=== PATIENT | female | born 1950 | race Caucasian/White ===

== ENCOUNTER 2018-03-10 07:03 | Day surgery (SDC) | payer MEDICARE, MEDICAID, SELFPAY ==
[2018-03-10] VITALS (9 sets, daily range): BP systolic 93–153; BP diastolic 50–67; PULSE 58–75; RESP 14–18; TEMP 35.7–36.4; O2SAT 99–100; BMI 21.4
--- NOTE | 2018-03-10 09:10 | PCM.OPRPT ---
Problem List (1) Family history of colon cancer Status: Acute Report of Operation Date of Procedure: 03/10/18 Pre-Operative Diagnosis: Family history of colon cancer Post-Operative Diagnosis: Same Surgery/Procedure Performed:: Colonoscopy with deployment of clip Type of Anesthesia:: MAC Anesthesiologist: Jose Stewart Description of Procedure: Patient was brought into the endoscopy suite placed in the left lateral decubitus position was given graded anesthesia. Colonoscope was inserted into the rectum and directed through the sigmoid colon, descending colon, transverse colon. This took an unbelievably long period of time to get to this location what I think at the hepatic flexure that I saw was a fungating mass and in the second set it took me to get the biopsy forceps down my channel it had moved away and I spent another 15 minutes trying to get back to it and just was unsuccessful. I was able to take a picture of it. I was able to put a metal clip distal to it. I was unable to damián it with Suzanne ink. The remaining part of her colon is extremely tortuous this is an excessively difficult colonoscopy. She did not have a great bowel prep I spent a lot of time irrigating and aspirating out over 600 cc of brown stool all liquidy in nature. Anal exam showed no masses. Given the amount of time pressure that I had exerted on her I did not feel that trying to be heroic and getting past this mass was appropriate. This is an obvious mass that is not going to be amendable to endoscopic techniques to be removed. And I am going to recommend that she undergo a laparoscopic extended right hemicolectomy. - Admit VTE Documentation VTE Present on Admission: No VTE Mechan Device Prophylaxis: None VTE Pharm Prophylaxis ordered?: No Reason prophylaxis not ordered:: Treatment Not Indicated
--- NOTE | 2018-03-10 09:14 | RAD_ITS ---
STUDY: X-RAY - ABDOMEN/PELVIS REASON FOR EXAM: Female, 67 years old. ABDOMINAL DISTENTION POST ENDO PROCEDURE, HAS HAD METAL CLIP PLACED SOMEWHERE NEAR THE HEPATIC FLEXURE TECHNIQUE: AP supine and upright views of the abdomen and pelvis. COMPARISON: None. FINDINGS: Normal visualized lung bases. There is an unremarkable bowel gas pattern. There is no demonstrated free abdominal air. The visualized liver, spleen are grossly normal in size and morphology. Bilateral kidney stones are noted the largest is in the right kidney measures 4 mm. Normal soft tissue structures. There are diffuse degenerative changes of the visualized lumbar spine. RAD/Abd Inc Decub and/or Erect IMPRESSION: Bilateral kidney stones are noted the largest is in the right kidney measures 4 mm. Electronically Signed: Errol Merritt MD at 12:55 EDT Tel , Service support ,
== END 2018-03-10 10:33 | disposition home or self-care (01) ==
LOC: EN 07:03 → AC 07:05
PROVIDERS: Family Provider Family Medicine; PCP Family Medicine; Visit Provider Surgery
PROC: 0DJD8ZZ Inspection of Lower Intestinal Tract, Via Natural or Artificial Opening Endoscopic (ICD-10-PCS; CPT 45378; principal; 2018-03-10 08:25)
DX: K63.89 Other specified diseases of intestine (principal); K56.2 Volvulus; Z80.0 Family history of malignant neoplasm of digestive organs; N20.0 Calculus of kidney; M81.0 Age-related osteoporosis without current pathological fracture; G35 Multiple sclerosis; E78.5 Hyperlipidemia, unspecified; J30.2 Other seasonal allergic rhinitis; F17.200 Nicotine dependence, unspecified, uncomplicated; Z79.899 Other long term (current) drug therapy
CPT/HCPCS: G0105; 74019; J7120; A4648; J1610

== ENCOUNTER → 2018-03-19 14:15 | Outpatient (CLI) | payer MEDICARE, MEDICAID, SELFPAY ==
--- NOTE | 2018-03-19 14:16 | CT_ITS ---
STUDY: CT ABDOMEN AND PELVIS WITH CONTRAST REASON FOR EXAM: Female, 67 years old. Mass of the hepatic flexure of the colon. RADIATION DOSAGE (If Supplied By Facility): CTDIvol = ( 19.95+7.68 ) mGy, DLP = ( 357.07 ) mGycm TECHNIQUE: Transaxial images were obtained from the dome of the diaphragm to the symphysis pubis with oral contrast. 100ML ml of Isovue 300 contrast was administered. Sagittal and coronal images were reconstructed. Individualized dose optimization techniques were used for this CT. COMPARISON: Comparison is made to the report of barium contrast enema 03/13/2012. FINDINGS: Body wall soft tissues: No acute process. Osseous structures: L4-L5 minimal grade 1 spinal listhesis with moderate disc narrowing and mild facet hypertrophy without significant stenosis. Slight lumbar scoliosis. Osteopenia. Normal lordosis. Inferior chest: Clear lung bases. Normal distal esophagus. No significant cardiomegaly. No pericardial effusion. Hepatobiliary: There is a benign cyst within segment 4 of the liver, 14 mm. The liver is otherwise normal. Nondilated biliary tree and common duct. Contracted normal-appearing gallbladder. Pancreas: No acute process. Spleen: Normal. Adrenal glands: Normal. Urogenital: There are 2 small nonobstructing calyceal calculi of the right kidney measuring less than 3 mm. A few vascular cusp secretions are present in the renal cecy. There are no calcific outline of the left kidney. Normal cortical thickness, symmetric nephrograms. Normal collecting systems, ureters, urinary bladder. Uterus absent. No adnexal mass or cyst. Pelvic floor and sidewalls and retroperitoneum: No mass or adenopathy. Vasculature: Desiccation of wall the aorta and proximal iliac vessels without significant stenosis, without aneurysm or dissection. Normal portal venous and mesenteric venous arborization. Normal iliac veins and IVC. Stomach: No acute process. Small bowel and mesentery: No acute process. Large bowel: Normal appendix. There is prominent distributed stool of the large bowel, not excessive but potentially reflecting mild constipation. There is no acute inflammation of the large bowel. Normal rectum. Free fluid or free air: None. CT/Abdomen/Pelvis WITH Contrast IMPRESSION: Moderately prominent stool burden of large bowel, not extreme but potentially reflecting mild constipation. There is no visible mass of the large bowel. No other acute abdominopelvic process. Electronically Signed: Curtis Marin, at 16:49 EDT Tel , Service support ,
[2018-03-19 14:36] LABS: CREATININE FINGERSTICK 0.9 mg/dL (0.55-1.02); EGFR FINGERSTICK > 60.0000 mL/min (>60)
== END ==
PROVIDERS: Family Provider Family Medicine; PCP Family Medicine; Visit Provider Surgery
DX: K63.9 Disease of intestine, unspecified (principal)
CPT/HCPCS: 74177; Q9967

== ENCOUNTER 2018-04-14 10:44 | Inpatient (IN) | payer MEDICARE, MEDICAID, SELFPAY ==
[2018-04-07 13:10] VITALS: BP 129/76; PULSE 77; RESP 18; TEMP 36.8; O2SAT 98; BMI 21.4
[2018-04-07 13:48] LABS: Absolute Lymphocyte Count 1.47 X10^3/ul (0.83-4.51); Absolute Neutrophil Count 4.7 X10^3/uL (2.0-7.7); Basophil# 0.03 X10^3/uL; Basophil% 0.4 % (0-1); Eosinophil# 0.14 X10^3/uL; Eosinophils% 1.9 % (0-5); Hematocrit 40.9 % (37-47); Hemoglobin 13.4 g/dl (12.0-15.0); Lymphocyte # 1.47 X10^3/ul (4.0); Lymphocyte % 20.4 % (19-41); Mean Corp Hgb Conc 32.8 g/gl (32-36); Mean Corpuscular Hgb 31.3 pg (27.0-32.0); Mean Corpuscular Volume 95.6 fL (81-99); Mean Platelet Vol. 10.7 fl (6.2-12.0); Monocyte# 0.82 X10^3/uL; Monocyte% 11.4 % (0-10); Neutrophil # 4.73 X10^3/uL (2.7-7.7); Neutrophil % 65.8 % (47-70); Platelet Count 235 K/mm3 (150-450); RBC Distribution Width CV 13.4 % (11.6-14.6); RBC Distribution Width SD 47.3 fl (35.1-43.9); Red Blood Count 4.28 M/mm3 (4.2-5.4); White Blood Count 7.2 K/mm3 (4.4-11.0)
[2018-04-07 13:59] LABS: POSITIVE COUNT NO; POSITIVE DIFFERENTIAL NO; POSITIVE MORPHOLOGY NO
--- NOTE | 2018-04-08 14:10 | NS ---
Pt picked up 10 bottles of Ensure Enlive today at 11:30. Instructed to consume 1 bottle BID from today through 04/12/18. Encouraged to call RD as needed with questions. Lisbeth Harris MS, RD, LD
[2018-04-14] VITALS (11 sets, daily range): BP systolic 97–166; BP diastolic 57–78; PULSE 55–82; RESP 14–18; TEMP 36.6–37.2; O2SAT 95–100; BMI 21.4
--- NOTE | 2018-04-14 | IMM_PTH ---
PATIENT: ANNE MARIE SCHNEIDER LOC: MS2 U#:[id number] AGE/SX: 67/F [place] [facility] [place] RE04/14/[address]: Dr. Hank Lucero MD : 1950 BED: 1 DIS: 04/18/2018 SPEC #: [id number] RECD: 04/24/18 13:47 STATUS: CHARLEE REQ #: [id number] CASS: 04/14/18 00:[address]: Hank Lucero DEPT: IMMUNOHISTOCHEMISTRY RECD BY: Bere Borjas ENTERED: 04/24/18 13:48 SP TYPE: IMMUNO OTHR DR: Dr. Nj Schulte MD Tissues: Right colon Procedures: MLH-1 (add) MSH6 (add) Anti-PMS2 (add) MSH2 (initial) PHYSICIAN & INSTITUTION [place] [id number] SPECIMEN INFORMATION: Tissue Source: Right colon Clinical Info: Mass of hepatic flexure of colon Specimen Number: [id number] #4 CPT code: 13340, 70860 x3 METHODOLOGY: Deparaffinized sections of prefer/formalin-fixed tissue or PAP/DQ stained slides are incubated with monoclonal/polyclonal antibodies/oligonucleotide probes. Localization is made via biotin free immunoperoxidase method. Appropriate controls are performed and reacted as expected. Results on target cell population are indicated in the following table: RESULTS: ANTIBODY / CLONE RESULT Block #4 COLON CANCER PROFILE (Prognostic Markers) MSH2 (25D12) positive, dim MSH6 (44) positive MLH-1 (M1) positive PMS2 (PMT3397) positive These tests were developed and their performance characteristics determined by [facility]. They may not have been cleared or approved by the U.S. Food and Drug Administration. The FDA has determined that such clearance or approval is not necessary. INTERPRETATION: Right colon, hemicolectomy: Result of Microsatellite Instability Study: Negative (no loss of mismatch protein; no microsatellite instability detected). AM:raul 04/25/18
[2018-04-14] MEDS: Scopolamine 1mg/72hr Patch 1 PATCH TRANSDERM. (11:16)
[2018-04-14] MEDS: Enoxaparin 40 MG/0.4 ML Syringe SC (11:16)
[2018-04-14] MEDS: Gabapentin 600 MG Tablet PO (11:16)
[2018-04-14] MEDS: Acetaminophen 500 MG Tablet 1000 MG PO ×2 (11:16→18:29)
[2018-04-14 11:21] LABS: Bedside Glucose 95 mg/dL (70-110)
[2018-04-14] MEDS: Lidocaine/D5W 2,000 MG/250 ML IV.SOLN 2000 MG (12:20)
[2018-04-14] MEDS: Cefazolin 2 GM in 0.9% Normal Saline 100 ML IV (13:00)
[2018-04-14] MEDS: Lidocaine/D5W 2,000 MG/250 ML IV.SOLN 16.47 MG IV (13:00)
--- NOTE | 2018-04-14 13:00 | COL._PTH ---
PATIENT: ANNE MARIE SCHNEIDER LOC: MS2 U#:[id number] AGE/SX: 67/F [place] [facility] [place] RE04/14/[address]: Dr. Hank Lucero MD : 1950 BED: 1 DIS: 04/18/2018 SPEC #: [id number] RECD: 04/14/18 14:40 STATUS: CHARLEE ALYSSA #: [id number] CASS: 04/14/18 13:[address]: Hank Lucero DEPT: SURGICAL PATHOLOGY RECD BY: Henrry Walker ENTERED: 04/14/18 14:41 SP TYPE: COLON OTHR DR: Dr. Nj Schulte MD Tissues: Colon, NOS Procedures: Surgery Specimen Level V HEADER OPERATION: Laparoscopic, hemicolectomy PRE-OP DIAGNOSIS: Mass of hepatic flexure of colon TISSUE SUBMITTED: Right colon MICROSCOPIC DIAGNOSIS Right colon, hemicolectomy: Microinvasive adenocarcinoma. 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 Tubular adenomas. Ten out of ten lymph nodes negative for malignancy. Margins of excision with no pathologic change. Appendix with no significant pathologic change. Small bowel mucosa with benign lymphoid hyperplasia. AM:raul 04/17/18 AM:raul 04/24/18 COMMENT COLON CANCER SUMMARY: Specimen ? right colon Procedure ? right hemicolectomy Tumor site ? right colon Tumor size ? 1.2 x 1 mm Macroscopic tumor perforation ? not identified Histologic type - adenocarcinoma Histologic grade ? low grade Microscopic tumor extension ? tumor invades through muscularis mucosa. Margins: Proximal margin ? free of carcinoma Distal margin ? free of carcinoma Circumferential or mesenteric margin - free of carcinoma Lymph-Vascular invasion ? not identified Perineural invasion - not identified Tumor deposits - not identified Type of polyp in which invasive carcinoma arose ? tubulovillous adenoma Lymph nodes: Number of lymph nodes examined - 10 Number of lymph nodes involved - 0 Additional pathologic findings ? tubulovillous adenomas with high-grade dysplasia and other tubular adenomas. PATHOLOGIC STAGE: pT1 N0 Mx The above summary is in compliance with [employer] [place] [employer] (CAP) Cancer Protocols Checklist and [place] Joint Committee on Cancer (AJCC), Staging Manual, 8th Ed. The largest adenoma contains a microinvasive adenocarcinoma measuring 1.2 mm in greatest dimension. This lesion is noted in the submucosa on deeper sections. Two of the largest tubulovillous adenomas contain focal high grade dysplasia close to the luminal surface. In addition, there is a smaller tubulovillous adenoma and three small tubular adenomas, none of which contain high-grade dysplasia. The microsatellite instability marker study will be reported separately ([id number]). Case has been reviewed in consultation with Dr. Cuellar who concurs with the above diagnosis. IDC:SJ This case was discussed with Dr. Lucero on 04/24/[address] Dawson. MICROSCOPIC DESCRIPTION Slides are reviewed. GROSS DESCRIPTION Received in fixative is one container labeled with the patient's name and designated right colon. The specimen consists of a previously, partially opened bowel segment which consists of an approximately 20 cm segment of large bowel, 1.5 cm segment of terminal ileum and attached 4.2 cm segment of appendix with an average diameter of 0.6 cm. The small bowel segment mucosa is lee-pink and thrown into normal folds. No mass lesions are identified. The colonic segment contains several flat and pedunculated polyps ranging in size from 0.5 cm to 3 cm in greatest dimension. These polyps are located distal to the ileocecal valve at a distance of 2, 5, 6 and 7 cm, respectively. No induration is identified in the attached fibrofatty tissue. Also present free in the specimen container are two irregular fragments of bowel ranging in size from 1.5 to 5 cm. Neither of these segments contains mucosal mass lesions. The serosal surface in the area of the polyps is not indurated and no gross perforation is seen. / AM:raul 04/14/18 Foam Gun Operator sections are submitted as follows: 1 ? mucosal margins, 2 ? appendix, 3 ? solar manufacturer's representative sections of smaller fragments of bowel free in container, 4 ? largest mucosal polyp, totally submitted, 5???second largest mucosal polyp, bisected and totally submitted, 6 ? third mucosal polyp, bisected and totally submitted, 7 ? two smaller mucosal polyps, 8 ? ileocecal valve, 9-12 ? pericolic fatty tissue with lymph nodes. / AM:raul 04/15/18 TC:0 [facility]: [id number]
--- NOTE | 2018-04-14 13:00 | COL._PTH ---
PATIENT: ANNE MARIE SCHNEIDER LOC: MS2 U#:[id number] AGE/SX: 67/F [place] [facility] [place] RE04/14/[address]: Dr. Hank Lucero MD : 1950 BED: 1 DIS: 04/18/2018 SPEC #: [id number] RECD: 04/14/18 14:40 STATUS: CHARLEE ALYSSA #: [id number] CASS: 04/14/18 13:[address]: Hank Lucero DEPT: SURGICAL PATHOLOGY RECD BY: Henrry Walker ENTERED: 04/14/18 14:41 SP TYPE: COLON OTHR DR: Dr. Nj Schulte MD Tissues: Colon, NOS Procedures: Surgery Specimen Level V HEADER OPERATION: Laparoscopic, hemicolectomy PRE-OP DIAGNOSIS: Mass of hepatic flexure of colon TISSUE SUBMITTED: Right colon MICROSCOPIC DIAGNOSIS Right colon, hemicolectomy: Tubulovillous adenomas with focal high-grade dysplasia. See Comment. Tubular adenomas. Ten out of ten lymph nodes negative for malignancy. Margins of excision with no pathologic change. Appendix with no significant pathologic change. Small bowel mucosa with benign lymphoid hyperplasia. AM:raul 04/17/18 COMMENT Two of the largest tubulovillous adenomas contain focal high grade dysplasia close to the luminal surface. In addition, there is a smaller tubulovillous adenoma and three small tubular adenomas, none of which contain high-grade dysplasia. MICROSCOPIC DESCRIPTION Slides are reviewed. GROSS DESCRIPTION Received in fixative is one container labeled with the patient's name and designated right colon. The specimen consists of a previously, partially opened bowel segment which consists of an approximately 20 cm segment of large bowel, 1.5 cm segment of terminal ileum and attached 4.2 cm segment of appendix with an average diameter of 0.6 cm. The small bowel segment mucosa is lee-pink and thrown into normal folds. No mass lesions are identified. The colonic segment contains several flat and pedunculated polyps ranging in size from 0.5 cm to 3 cm in greatest dimension. These polyps are located distal to the ileocecal valve at a distance of 2, 5, 6 and 7 cm, respectively. No induration is identified in the attached fibrofatty tissue. Also present free in the specimen container are two irregular fragments of bowel ranging in size from 1.5 to 5 cm. Neither of these segments contains mucosal mass lesions. The serosal surface in the area of the polyps is not indurated and no gross perforation is seen. / AM:raul 04/14/18 Environmental Management Specialist sections are submitted as follows: 1 ? mucosal margins, 2 ? appendix, 3 ? ocean import representative sections of smaller fragments of bowel free in container, 4 ? largest mucosal polyp, totally submitted, 5???second largest mucosal polyp, bisected and totally submitted, 6 ? third mucosal polyp, bisected and totally submitted, 7 ? two smaller mucosal polyps, 8 ? ileocecal valve, 9-12 ? pericolic fatty tissue with lymph nodes. / AM:raul 04/15/18 TC:? CPT: 07860
[2018-04-14] MEDS: BUPIVACAINE LIPOSOME/PF 20 ML VIAL OPERA.SITE (13:48)
--- NOTE | 2018-04-14 14:30 | PCM.OPRPT ---
Problem List (1) Colonic mass Status: Acute Report of Operation Date of Procedure: 04/14/18 Pre-Operative Diagnosis: Colonic mass at the hepatic flexure Post-Operative Diagnosis: Same Surgery/Procedure Performed:: Laparoscopic right hemicolectomy Type of Anesthesia:: General Estimated Blood Loss (mL): < 25 cc Description of Procedure: Patient was brought into the operating room and placed in the supine position under excellent general endotracheal intubation a Ruffin catheter was placed the abdomen was then sterilely prepped and draped in usual fashion. Local was injected infraumbilically dissection was carried down to the fascia the fascia grasped with [place] varies needle was placed inside the abdomen. The abdomen was insufflated to 15 torr. A #5 port was placed in the Visiport fashion without injury to underlying structures. Suprapubic #5 trocar was placed in a subxiphoid #5 trocar was placed. Nerve block was created with X Jean-Baptiste along the lower half of the rib cage in both the left and right side extending down to the iliac crest. Patient was placed in the head down and rotated to the left position. I used the Enseal to mobilize the white line of Toldt mobilizing the cecum terminal ileum all the way to the hepatic flexure. I then placed the patient in the head up and rotated to the left position I took the hepatocolic ligament down with the Enseal. I rotated the colon until I identified the duodenum and identified the inferior vena cava. I then made a small midline incision above the umbilicus. Wound protector was placed inside I brought the cecum right colon and transverse colon up. Identified were injected the blue dye. I transected the transverse colon to the right side of the middle colic vessels. I then came down on the mesentery tying the mesentery off with 0 Vicryl ties. I tried to get as much of the root is possible. I then transected the terminal ileum with a 75 linear cutter. I went to the back table opened up my specimen identified the colonic polyp which looked more like a tubulovillous adenoma. I broke scrub re-scrubbed and then created a [id number] functional end-to-end anastomosis with a 75 linear cutter then used a 60 stapler to close the end. I placed 2 sutures of 3-0 silk into the crotch I closed the mesenteric rent with 0 Vicryl and then placed the colon back into its anatomic position. I removed the wound protector I injected Exparel into the wound. I closed the wound with #1 PDS. I reinflated the abdomen the colon light completely flat into the right upper quadrant small intestine were resting appropriately there was no twisting identified. I deflated the abdomen. Skin incisions were closed with subtalar stitches of 4-0 Monocryl midline incision was brought together with deep dermal stitches of 3-0 Vicryl then another 4-0 Monocryl. Needle and sponge count was correct. Patient tolerated the procedure well. Sterile dressings were applied. - Admit VTE Documentation VTE Present on Admission: No VTE Mechan Device Prophylaxis: SCD's VTE Pharm Prophylaxis ordered?: No
[2018-04-14] MEDS: Ketorolac 15 MG/ML Vial IV (18:29)
[2018-04-14] MEDS: Docusate Sodium 100 MG Capsule PO (20:13)
[2018-04-15] VITALS (12 sets, daily range): BP systolic 92–166; BP diastolic 43–81; PULSE 60–81; RESP 14–20; TEMP 36.6–37.2; O2SAT 95–99; BMI 21.4
[2018-04-15] MEDS: Lactated Ringers 1,000 ML 40 ML IV (00:27)
[2018-04-15] MEDS: Acetaminophen 500 MG Tablet 1000 MG PO ×3 (00:27→23:45)
[2018-04-15] MEDS: Ketorolac 15 MG/ML Vial IV ×3 (00:28→23:45)
[2018-04-15] MEDS: Ondansetron ODT 4 MG Tablet PO ×2 (04:46→23:52)
[2018-04-15 07:05] LABS: Hematocrit 24.6 % (37-47); Mean Corp Hgb Conc 32.5 g/gl (32-36); Mean Corpuscular Hgb 31.1 pg (27.0-32.0); Mean Corpuscular Volume 95.7 fL (81-99); Mean Platelet Vol. 10.8 fl (6.2-12.0); Platelet Count 179 K/mm3 (150-450); RBC Distribution Width CV 13.6 % (11.6-14.6); RBC Distribution Width SD 48.1 fl (35.1-43.9); Red Blood Count 2.57 M/mm3 (4.2-5.4); White Blood Count 12.8 K/mm3 (4.4-11.0)
[2018-04-15 07:07] LABS: Scan Indicated on CBC? Y/N NO
[2018-04-15 07:35] LABS: Anion Gap 9 (5-15); BUN 16 mg/dL (7-18); BUN/Creat Ratio 17.8 RATIO (10-20); Calcium,Total 7.2 mg/dL (8.5-10.1); Chloride 107 mmol/L (98-107); EST Glomerular Filtration Rate 67 mL/min (>60); Est Glom Filt Rate - Afr Amer 80 mL/min (>60); Estimated Creatinine Clearance 50.18 ml/min; Glucose 127 mg/dL (74-106); Potassium 4.4 mmol/L (3.5-5.1); Sodium Level 141 mmol/L (136-145)
--- NOTE | 2018-04-15 10:31 | PCM.PN.SRG ---
Patient Problems: Active and Suspected Problems (Last Reviewed 03/25/18 @ 08:22 by Krystina An) Colon polyp (Acute) Colonic mass (Acute) Subjective: Pain is fairly well controlled still needing IV narcotics. No flatus. No bowel movements. Is not been up to a chair yet. Objective: Abdomen is soft appropriately tender dressings are dry - Physical Exam Vital Signs Temp Pulse Resp BP Pulse Ox 98.6 F 63 16 121/61 H 97 04/15/18 02:11 04/15/18 02:11 04/15/18 02:11 04/15/18 02:11 04/15/18 07:27 Oxygen Flow Rate (L/min) 3 Oxygen Delivery Method Room Air Weight: 121 lb 0.54 oz Body Mass Index (BMI) 21.4 Intake and Output for Last 24 Hours 04/13/18 04/14/18 04/15/18 23:59 23:59 23:59 Intake Total 1595 / 1595 777 / 777 Output Total 375 / 375 300 / 300 Balance 1220 / 1220 477 / 477 Laboratory Tests Past 24 Hrs 04/15/18 04/15/18 06:35 06:35 WBC 12.8 H RBC 2.57 L Hgb 8.0 L Hct 24.6 L MCV 95.7 MCH 31.1 MCHC 32.5 RDW 13.6 RDW Differential 48.1 H Plt Count 179 MPV 10.8 Sodium 141 Potassium 4.4 Chloride 107 Carbon Dioxide 25.0 Anion Gap 9 BUN 16 Creatinine 0.90 Estim Creat Clear Calc 50.18 Est GFR (MDRD) Af Amer 80 Est GFR (MDRD) Non-Af 67 BUN/Creatinine Ratio 17.8 Glucose 127 H Calcium 7.2 L POC Glucose 04/14/18 11:11 POC Glucose 95 Medical Necessity - Tobacco Use Smoking Status: Current every day smoker Assessment/Plan All Active Problems (Last Reviewed 03/25/18 @ 08:22 by Krystina An) Colon polyp (Acute) Colonic mass (Acute) Hx of colonoscopy (Acute) Osteoporosis (Acute) Seasonal allergies (Acute) Hx of elbow surgery (Acute) Hx of cervical spine surgery (Acute) Hx of hysterectomy (Acute) Family history of colon cancer (Acute) Hyperlipemia (Acute) MS (multiple sclerosis) (Acute) Postop day #1 Not sure where such a large hemoglobin drop came from we did not lose any but it seemed like during the surgery her vital signs are stable at this time and I think this is probably going to be mostly delutional but obviously were going to have to keep a close eye on this.
[2018-04-15] MEDS: Atorvastatin Calcium 10 MG Tablet PO (10:59)
--- NOTE | 2018-04-15 11:21 | CASEMGMT ---
RN CM assessment complete. See Link. DC PLAN: home -pt independent prior to admission. Plans to return home. No needs identified @ this time. Rafa BREAUXN RN ACM
[2018-04-15 12:25] LABS: Bedside Glucose 116 mg/dL (70-110)
[2018-04-15 13:40] LABS: Hematocrit 22.2 % (37-47); Hemoglobin 7.2 g/dl (12.0-15.0); Mean Corp Hgb Conc 32.4 g/gl (32-36); Mean Corpuscular Hgb 31.2 pg (27.0-32.0); Mean Corpuscular Volume 96.1 fL (81-99); Mean Platelet Vol. 10.4 fl (6.2-12.0); Platelet Count 161 K/mm3 (150-450); RBC Distribution Width CV 13.5 % (11.6-14.6); RBC Distribution Width SD 47.4 fl (35.1-43.9); Red Blood Count 2.31 M/mm3 (4.2-5.4); White Blood Count 10.5 K/mm3 (4.4-11.0)
[2018-04-15 13:41] LABS: Scan Indicated on CBC? Y/N NO
[2018-04-15] MEDS: Magnesium Citrate 300 ML PO (14:04)
--- NOTE | 2018-04-15 14:30 | NURSING ---
1400-PT UP TO BATHROOM, HAD ANOTHER 400 IN THICK RED STOOL. STARTED ON MAG CITRATE AT THIS TIME. ENDO CALLED, READY FOR PT. PT OFF UNIT VIA BED TO AC APPROX [id number]. HAD ASKED PT PREVIOUSLY, SHE DID NOT WANT HER FATHER AWARE OF WHAT WAS GOING ON AT THIS TIME. SO, WHEN HER FATHER ARRIVED ON UNIT, THIS NURSE CALLED AND HAD CHRISTIAN RN ASK PT IF SHE WANTED HIM TO BROUGHT DOWN. PT DID NOT WANT HER FATHER MADE AWARE. WAS ASKED TO JUST TELL HIM SHE WENT DOWN FOR ANOTHER PROCEDURE AND WOULD BE BACK IN ABOUT AN HOUR.
--- NOTE | 2018-04-15 15:14 | PCM.OPRPT ---
Problem List (1) Lower GI bleed Status: Acute Report of Operation Date of Procedure: 04/14/18 Pre-Operative Diagnosis: Bleeding at anastomosis from small bowel to transverse colon Post-Operative Diagnosis: Same Surgery/Procedure Performed:: Colonoscopy. Exploratory laparotomy. Redo [id number] functional end-to-end jejunal colon anastomosis for GI hemorrhage Type of Anesthesia:: General Anesthesiologist: Nba Hyde Description of Procedure: Patient was brought into the endoscopy suite. Placed in the left lateral decubitus position. Given graded anesthesia. Colonoscope was inserted into the rectum patient had a significant amount of blood in the rectum. I tried to maneuver as best that I could through the colon but I was only able to get about the splenic flexure and there is just too much blood and I felt that I had the possibility of injuring her colon and that was not going to be the prudent thing to do. I therefore aborted the procedure and I am going to take her to surgery to do an exploratory laparotomy. Patient was brought into the operating room placed in the supine position under excellent general endotracheal intubation Ruffin catheter was placed the abdomen was sterilely prepped and draped in usual fashion. I opened up her previous upper midline incision remove the PDS suture placed a wound protector into the wound and brought my anastomosis. I placed to shotted clamps one on the: 1 on the small bowel I opened up my staple line where the 60 stapler was in irrigated out all the old blood. To my astonishment I saw a 2 mm visible vessel that was actively oozing. I controlled this with a [id number] stitch of 3-0 silk. I then took a 3-0 chromic and buttress my suture line with locking sutures I placed a small Hemoclip on the visible vessel as well. When we were done there was no other visible bleeding I reclosed my enterotomy with a 60 stapler. I remove the shotted clamps placed Betadine on my suture line. I placed the anastomosis back into the right upper quadrant I closed the fascia with #1 PDS subcu was brought together with deep dermal stitches of 3-0 Vicryl then a running 4-0 Monocryl Steri-Strips are applied sterile dressings were applied and the patient tolerated the procedure well. - Admit VTE Documentation VTE Present on Admission: No VTE Mechan Device Prophylaxis: None VTE Pharm Prophylaxis ordered?: No Reason prophylaxis not ordered:: Treatment Not Indicated
[2018-04-15 19:05] LABS: Absolute Neutrophil Count 8.1 X10^3/uL (2.0-7.7); Basophil# 0.02 X10^3/uL; Basophil% 0.2 % (0-1); Eosinophil# 0.06 X10^3/uL; Eosinophils% 0.5 % (0-5); Hematocrit 29.3 % (37-47); Hemoglobin 9.7 g/dl (12.0-15.0); Lymphocyte % 16.2 % (19-41); Mean Corp Hgb Conc 33.1 g/gl (32-36); Mean Corpuscular Hgb 30.4 pg (27.0-32.0); Mean Corpuscular Volume 91.8 fL (81-99); Mean Platelet Vol. 11.2 fl (6.2-12.0); Monocyte% 9.9 % (0-10); Neutrophil # 8.12 X10^3/uL (2.7-7.7); Platelet Count 136 K/mm3 (150-450); RBC Distribution Width CV 15.2 % (11.6-14.6); RBC Distribution Width SD 51.6 fl (35.1-43.9); Red Blood Count 3.19 M/mm3 (4.2-5.4); White Blood Count 11.1 K/mm3 (4.4-11.0)
[2018-04-15 19:06] LABS: POSITIVE COUNT NO; POSITIVE DIFFERENTIAL NO; POSITIVE MORPHOLOGY NO
[2018-04-16] VITALS (11 sets, daily range): BP systolic 124–156; BP diastolic 64–78; PULSE 64–77; RESP 14–20; TEMP 36.8–37.1; O2SAT 96–98
[2018-04-16] MEDS: Acetaminophen 500 MG Tablet 1000 MG PO ×3 (05:18→17:05)
[2018-04-16] MEDS: Ketorolac 15 MG/ML Vial IV ×2 (05:18→11:58)
[2018-04-16 06:59] LABS: Absolute Lymphocyte Count 1.72 X10^3/ul (0.83-4.51); Absolute Neutrophil Count 7.7 X10^3/uL (2.0-7.7); Basophil# 0.02 X10^3/uL; Basophil% 0.2 % (0-1); Eosinophil# 0.05 X10^3/uL; Eosinophils% 0.5 % (0-5); Hematocrit 27.3 % (37-47); Hemoglobin 9.1 g/dl (12.0-15.0); Lymphocyte # 1.72 X10^3/ul (4.0); Lymphocyte % 16.7 % (19-41); Mean Corp Hgb Conc 33.3 g/gl (32-36); Mean Corpuscular Hgb 30.5 pg (27.0-32.0); Mean Corpuscular Volume 91.6 fL (81-99); Mean Platelet Vol. 11.1 fl (6.2-12.0); Monocyte# 0.78 X10^3/uL; Monocyte% 7.6 % (0-10); Neutrophil # 7.74 X10^3/uL (2.7-7.7); Neutrophil % 74.9 % (47-70); Platelet Count 118 K/mm3 (150-450); RBC Distribution Width CV 16.3 % (11.6-14.6); RBC Distribution Width SD 54.5 fl (35.1-43.9); Red Blood Count 2.98 M/mm3 (4.2-5.4); White Blood Count 10.3 K/mm3 (4.4-11.0)
[2018-04-16 07:02] LABS: Differential Indicated SCAN CRITERIA MET; POSITIVE COUNT NO; POSITIVE DIFFERENTIAL NO; POSITIVE MORPHOLOGY YES
[2018-04-16] MEDS: 0.9% NaCl Peripheral Flush Adult/Peds IV ×3 (10:18→22:31)
[2018-04-16] MEDS: Atorvastatin Calcium 10 MG Tablet PO (10:19)
--- NOTE | 2018-04-16 12:41 | PCM.PN.SRG ---
Patient Problems: Active and Suspected Problems (Last Reviewed 03/25/18 @ 08:22 by Krystina An) Colon polyp (Acute) Colonic mass (Acute) Lower GI bleed (Acute) Subjective: Patient has had no further bloody bowel movements. She has not passed flatus as of yet. Her pain is controlled. Objective: Dressing is dry abdomen is soft and appropriately tender in the midline. - Physical Exam Vital Signs Temp Pulse Resp BP Pulse Ox 98.2 F 65 15 138/78 H 97 04/16/18 08:38 04/16/18 08:38 04/16/18 08:38 04/16/18 08:38 04/16/18 08:38 Oxygen Flow Rate (L/min) 3 Oxygen Delivery Method Room Air Weight: 121 lb 0.54 oz Body Mass Index (BMI) 21.4 Intake and Output for Last 24 Hours 04/14/18 04/15/18 04/16/18 23:59 23:59 23:59 Intake Total 1595 / 1595 3475 / 3475 1109 / 1109 Output Total 375 / 375 1180 / 1180 1625 / 1625 Balance 1220 / 1220 2295 / 2295 -516 / -516 Laboratory Tests Past 24 Hrs 04/15/18 04/15/18 04/15/18 13:28 15:22 15:22 WBC 10.5 RBC 2.31 L Hgb 7.2 L Hct 22.2 L MCV 96.1 MCH 31.2 MCHC 32.4 RDW 13.5 RDW Differential 47.4 H Plt Count 161 MPV 10.4 Immature Gran % (Auto) Neut % (Auto) Lymph % (Auto) [place] % (Auto) Eos % (Auto) Baso % (Auto) Absolute Neuts (auto) Absolute Lymphs (auto) Total Counted Blood Type A POSITIVE Antibody Screen NEGATIVE Crossmatch See Detail See Detail 04/15/18 04/16/18 18:42 05:54 WBC 11.1 H 10.3 RBC 3.19 L 2.98 L Hgb 9.7 L 9.1 L Hct 29.3 L 27.3 L MCV 91.8 91.6 MCH 30.4 30.5 MCHC 33.1 33.3 RDW 15.2 H 16.3 H RDW Differential 51.6 H 54.5 H Plt Count 136 L 118 L MPV 11.2 11.1 Immature Gran % (Auto) 0.200 0.100 Neut % (Auto) 73.0 H 74.9 H Lymph % (Auto) 16.2 L 16.7 L [place] % (Auto) 9.9 7.6 Eos % (Auto) 0.5 0.5 Baso % (Auto) 0.2 0.2 Absolute Neuts (auto) 8.1 H 7.7 Absolute Lymphs (auto) 1.80 1.72 Total Counted Not Reportable Not Reportable Blood Type Antibody Screen Crossmatch Medical Necessity - Tobacco Use Smoking Status: Current every day smoker Assessment/Plan All Active Problems (Last Reviewed 03/25/18 @ 08:22 by Krystina An) Colon polyp (Acute) Colonic mass (Acute) Lower GI bleed (Acute) Hx of colonoscopy (Acute) Osteoporosis (Acute) Seasonal allergies (Acute) Hx of elbow surgery (Acute) Hx of cervical spine surgery (Acute) Hx of hysterectomy (Acute) Family history of colon cancer (Acute) Hyperlipemia (Acute) MS (multiple sclerosis) (Acute) Postop day 2 Patient is improving. Await GI function. Hemoglobin appears to be stable. Tolerating liquids. Will remove Ruffin catheter and ambulate aggressively today.
[2018-04-17] MEDS: oxyCODONE 5 MG Tablet PO ×2 (00:05→08:20)
[2018-04-17] MEDS: Ondansetron ODT 4 MG Tablet PO (00:05)
[2018-04-17] MEDS: Acetaminophen 500 MG Tablet 1000 MG PO ×4 (00:06→17:11)
[2018-04-17 04:00] VITALS: BP 153/83; PULSE 79; RESP 18; TEMP 36.8; O2SAT 96
[2018-04-17 04:08] VITALS: PULSE 70
[2018-04-17 07:09] VITALS: O2SAT 95
[2018-04-17 09:08] VITALS: BP 130/77; PULSE 64; RESP 18; TEMP 36.7; O2SAT 98
--- NOTE | 2018-04-17 10:26 | PCM.PN.SRG ---
Patient Problems: Active and Suspected Problems (Last Reviewed 03/25/18 @ 08:22 by Krystina An) Colon polyp (Acute) Colonic mass (Acute) Lower GI bleed (Acute) Subjective: Evacuating out some old blood from her colon some flatus but no real bowel movements yet Objective: Dressing dry abdomen is soft - Physical Exam Vital Signs Temp Pulse Resp BP Pulse Ox 98.0 F 64 18 130/77 H 98 04/17/18 09:08 04/17/18 09:08 04/17/18 09:08 04/17/18 09:08 04/17/18 09:08 Oxygen Flow Rate (L/min) 3 Oxygen Delivery Method Room Air Weight: 121 lb 0.54 oz Body Mass Index (BMI) 21.4 Intake and Output for Last 24 Hours 04/15/18 04/16/18 04/17/18 23:59 23:59 23:59 Intake Total 3475 / 3475 1549 / 1549 60 / 60 Output Total 1180 / 1180 2024 / 2024 400 / 400 Balance 2295 / 2295 -476 / -476 -340 / -340 Medical Necessity - Tobacco Use Smoking Status: Current every day smoker Assessment/Plan All Active Problems (Last Reviewed 03/25/18 @ 08:22 by Krystina An) Colon polyp (Acute) Colonic mass (Acute) Lower GI bleed (Acute) Hx of colonoscopy (Acute) Osteoporosis (Acute) Seasonal allergies (Acute) Hx of elbow surgery (Acute) Hx of cervical spine surgery (Acute) Hx of hysterectomy (Acute) Family history of colon cancer (Acute) Hyperlipemia (Acute) MS (multiple sclerosis) (Acute) Encourage patient to ambulate today. We will try to advance her diet to full liquids and hopefully will be able to discharge her on Saturday
[2018-04-17] MEDS: Atorvastatin Calcium 10 MG Tablet PO (11:36)
[2018-04-17] MEDS: Docusate Sodium 100 MG Capsule PO ×2 (11:36→21:50)
[2018-04-17 15:01] VITALS: BP 129/75; PULSE 68; RESP 18; TEMP 36.9; O2SAT 98
[2018-04-17 19:59] VITALS: BP 118/65; PULSE 77; RESP 16; TEMP 36.9; O2SAT 98
[2018-04-17] MEDS: 0.9% NaCl Peripheral Flush Adult/Peds IV (21:49)
--- NOTE | 2018-04-17 23:22 | NURSING ---
ambulated in [place]. gait steady
[2018-04-18] MEDS: oxyCODONE 5 MG Tablet PO ×2 (00:25→09:52)
[2018-04-18] MEDS: Acetaminophen 500 MG Tablet 1000 MG PO ×2 (00:25→06:43)
[2018-04-18 02:26] VITALS: BP 126/78; PULSE 70; RESP 16; TEMP 37; O2SAT 95
--- NOTE | 2018-04-18 07:03 | PCM.DC.GS ---
Discharge Diet: Light diet - advance as tolerated - If you have questions about your diet instructions, please talk to your doctor. Discharge Activity: May Not Drive - for 1 week or while taking narcotic pain medicine. May shower in (days): 1 Lifting Restrictions: 10 pounds Call your doctor if your incision/area has: Continuous Slow Oozing, Sudden Increased Bleeding, Increased Pain/ Swelling, Increased Redness, Foul Smelling Discharge Call your doctor if you observe: Fever of 101 or Higher Suture Line Care: Avoid Pulling/Pushing, Avoid Pinching/Bending Additional Dressing/Incision Instructions:: Change or remove dressing in 4 days. Leave steri-strips in place for 1 week. Allergies/Adverse Reactions: Allergies adhesive tape Allergy (Verified 04/07/18 12:53) Rash ciprofloxacin [From Cipro] Allergy (Verified 04/07/18 12:53) Shortness of breath Medications to take at Discharge Atorvastatin Calcium [Lipitor] 10 mg PO DAILY 11/06/16 Cholecalciferol (Vitamin D3) [Vitamin D3] 5,000 unit PO DAILY 11/06/16 Ibuprofen [Motrin] 600 mg PO Q8H PRN 11/06/16 cetirizine 10 mg capsule 10 mg PO DAILY cap 02/26/18 Ketoconazole [Ketoconazole] 1 applicatio TP DAILY 04/07/18 metronidazole 500 mg tablet 500 mg PO .COMPLEX #6 tab 04/08/18 neomycin 500 mg tablet 500 mg PO .COMPLEX #6 tab 04/08/18 Primary Care Physician: Nj Schulte MD [Primary Care Provider] - Test Results: Test results from this visit will be discussed in further detail at your follow-up appointment, if applicable. Please Follow Up With: Hank Lucero MD - [phone] When: Call to make an appointment to be seen in about 10 days.
[2018-04-18 08:07] VITALS: BP 129/71; PULSE 79; RESP 16; TEMP 36.8; O2SAT 99
[2018-04-18] MEDS: 0.9% NaCl Peripheral Flush Adult/Peds IV (09:52)
[2018-04-18] MEDS: Docusate Sodium 100 MG Capsule PO (09:53)
[2018-04-18] MEDS: Atorvastatin Calcium 10 MG Tablet PO (09:53)
[2018-04-18 11:49] VITALS: BP 135/83; PULSE 86; RESP 18; TEMP 36.8; O2SAT 96
--- NOTE | 2018-04-22 11:31 | PCM.DC.SUM ---
Discharge Date and Diagnosis Date of Admission: 04/14/18 Date of Discharge: 04/18/18 - Primary Discharge Diagnosis Right hemicolectomy for colonic mass at hepatic flexure Post-operative hemorrhage Hospital Course and Treatment Operations: colectomy - Right hemicolectomy, - - Exploratory laparotomy with control of bleeding at the anastomosis Procedures: Blood transfusion, Colonoscopy Summary of Care Provided: The patient is a 67 year old F who presented for an elective right hemicolectomy for colonic hepatic flexure mass. Dr. Lucero performed a laparoscopic right hemicolectomy on 04/14/18. Patient tolerated the procedure well. On POD #1, patient's Hgb dropped from 8.0 to 7.2. Patient was taken for a colonoscopy on 04/15 which demonstrated a significant amount of blood within the rectum. Patient was taken to the operating room for an emergent exploratory laparotomy with controlled bleeding of the anastomosis. Patient was given 2 units of PRBC. She was transferred from the OR to med/surg floor. Upon discharge, patient had positive flatus. She denies nausea, vomiting. She noted old blood with flatus. She denies bowel movements. She tolerated full liquids. Patient was urinating well. Discharge Diet: Light diet - advance as tolerated - If you have questions about your diet instructions, please talk to your doctor. Discharge Activity: May Not Drive - for 1 week or while taking narcotic pain medicine. May shower in (days): 1 Call your doctor if your incision/area has: Continuous Slow Oozing, Sudden Increased Bleeding, Increased Pain/ Swelling, Increased Redness, Foul Smelling Discharge Call your doctor if you observe: Fever of 101 or Higher Suture Line Care: Avoid Pulling/Pushing, Avoid Pinching/Bending Additional Dressing/Incision Instructions:: Change or remove dressing in 4 days. Leave steri-strips in place for 1 week. Home Medications: Medications to take at Discharge Atorvastatin Calcium [Lipitor] 10 mg PO DAILY 11/06/16 Cholecalciferol (Vitamin D3) [Vitamin D3] 5,000 unit PO DAILY 11/06/16 Ibuprofen [Motrin] 600 mg PO Q8H PRN 11/06/16 cetirizine 10 mg capsule 10 mg PO DAILY cap 02/26/18 Ketoconazole [Ketoconazole] 1 applicatio TP DAILY 04/07/18 metronidazole 500 mg tablet 500 mg PO .COMPLEX #6 tab 04/08/18 neomycin 500 mg tablet 500 mg PO .COMPLEX #6 tab 04/08/18 Oxycodone HCl/Acetaminophen [Percocet 5/325] 1 - 2 tab PO Q4H PRN PRN 4 Days #30 tab 04/18/18 Following Prescrptions Were Given to Patient: Oxycodone HCl/Acetaminophen [Percocet 5/325] 1 - 2 tab PO Q4H PRN PRN 4 Days #30 tab PRN Reason: Pain Primary Care Physician: Nj Schulte MD [Primary Care Provider] - Please Follow Up With: Hank Lucero MD - [phone] When: Call to make an appointment to be seen in about 10 days. Disposition: Home Minutes spent on discharge:: 15 Patient Condition:: Stable Medical Necessity - Tobacco Use Smoking Status: Current every day smoker Tobacco Use: Cigarettes Meaningful Use Info Meaningful Use Diagnoses (Choose all that apply): None applicable Code Visit Inpatient E&M: 15767 Disch Hosp
== END 2018-04-18 12:05 | disposition home or self-care (01) | DRG 330 ==
PROVIDERS: Anesthesiology; Admitting Provider Surgery; Family Provider Family Medicine; PCP Family Medicine; Visit Provider Surgery
PROC: 0DTF4ZZ Resection of Right Large Intestine, Percutaneous Endoscopic Approach (ICD-10-PCS; CPT 44205; principal; 2018-04-14 12:40)
PROC: 0W3P0ZZ Control Bleeding in Gastrointestinal Tract, Open Approach (ICD-10-PCS; CPT 49000; principal; 2018-04-15 08:55)
PROC: 0DJD8ZZ Inspection of Lower Intestinal Tract, Via Natural or Artificial Opening Endoscopic (ICD-10-PCS; CPT 45378; principal; 2018-04-15 14:25)
DX: C18.3 Malignant neoplasm of hepatic flexure (principal); K91.840 Postprocedural hemorrhage of a digestive system organ or structure following a digestive system procedure; K63.9 Disease of intestine, unspecified; Y83.8 Other surgical procedures as the cause of abnormal reaction of the patient, or of later complication, without mention of misadventure at the time of the procedure; F17.210 Nicotine dependence, cigarettes, uncomplicated; G35 Multiple sclerosis; E78.5 Hyperlipidemia, unspecified; Z80.0 Family history of malignant neoplasm of digestive organs
CPT/HCPCS: 36415; 80048; 82962; 85025; 85027; 86850; 86900; 86920; 86922; 88307; 88309; 88341; 88342; 93005; 94762; 97802; J7040; J7050; J7120; P9016; A4216; C1760; J2405; J3490

== ENCOUNTER → 2018-07-01 15:47 | Outpatient (CLI) | payer MEDICARE, MEDICAID, SELFPAY ==
--- NOTE | 2018-07-01 15:49 | CT_ITS ---
STUDY: CT ABDOMEN AND PELVIS WITH CONTRAST REASON FOR EXAM: Female, 68 years old. Hemicolectomy 2 months ago for colon cancer. Right-sided pain. RADIATION DOSAGE (If Supplied By Facility): CTDIvol = ( 9.45 ) mGy, DLP = ( 325.35 ) mGycm TECHNIQUE: Transaxial images were obtained from the dome of the diaphragm to the symphysis pubis with oral contrast. 80ML ml of Isovue 300 contrast was administered. Sagittal and coronal images were reconstructed. Individualized dose optimization techniques were used for this CT. COMPARISON: March 19, 2018. FINDINGS: The visualized lung bases are unremarkable. The visualized portions of the heart are within normal limits. There is a stable cyst in segment 4A of the liver measuring 1.1 cm in diameter. There is no evidence for enhancing mass. Normal gallbladder and extrahepatic biliary system. Normal spleen. Normal pancreas. Normal bilateral adrenal glands. There is a small cyst in the upper pole of the right kidney. There is a 2 mm nonobstructing calculus lower pole calyx. Vascular calcifications are seen in the hilum. Normal visualized right ureter. The tiny cortical cyst along the posterior margin of the kidney. There is no renal calculi. Normal visualized left ureter. The stomach is distended with contrast and air. There is no evidence of obstruction or mass. Normal small intestine. Large amount of feces throughout the colon. There is evidence of right hemicolectomy with anastomosis in the region of the hepatic flexure. There is no evidence of local recurrence. There is diffuse atherosclerotic calcification of the abdominal aorta, without a demonstrated aneurysm. Normal inferior vena cava. Normal retroperitoneum. Normal urinary bladder. Normal vaginal cuff. There is no pelvic lymphadenopathy. No free air or free fluid is seen within the peritoneal cavity. Normal abdominal wall. Stable degenerative changes of the lumbar spine. CT/Abdomen/Pelvis WITH Contrast IMPRESSION: 1. Status post right hemicolectomy. There is no evidence of local recurrence or metastatic disease. 2. Increased colonic feces suggesting constipation. 3. No other major interval change. Electronically Signed: Rob Christianson DO at 23:37 EST Tel [phone], Service support ,
[2018-07-01 16:11] LABS: CREATININE FINGERSTICK 0.8 mg/dL (0.55-1.02); EGFR FINGERSTICK > 60.0000 mL/min (>60)
== END ==
PROVIDERS: Family Provider Family Medicine; PCP Family Medicine; Referring Provider Physician Assistant; Visit Provider Physician Assistant
DX: R10.9 Unspecified abdominal pain (principal); Z90.49 Acquired absence of other specified parts of digestive tract
CPT/HCPCS: 74177; Q9967